=== PATIENT | male | born 1975 | race American Indian/Alaskan Native ===

== ENCOUNTER 2021-04-16 18:17 | Emergency (ER) | payer SELFPAY ==
[2021-04-16 18:37] VITALS: BP 152/74
[2021-04-16] MEDS ORDERED: HYDROcodone/ACETAMINOPHEN 5-325 MG TAB PO STA (20:14)
[2021-04-16] MEDS ORDERED: TETANUS,DIPH,PERTUSS(ACELL) VACCINE 0.5 ML SYRINGE IM ONE (20:14)
[2021-04-16] MEDS ORDERED: ONDANSETRON 4 MG/2 ML INJ IV ONE (20:18)
[2021-04-16] MEDS ORDERED: MORPHINE 4 MG/1 ML INJ IV ONE (20:18)
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
[2021-04-16 21:28] LABS: BUN/Creatinine Ratio 11; Blood Urea Nitrogen 12 mg/dL (9-20); Calcium 9.2 mg/dL (8.4-10.2); Hemolysis Index 11
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
== END 2021-04-17 02:00 | disposition home or self-care (01) ==
LOC: ED 18:17
DX: S02.19XA Other fracture of base of skull, initial encounter for closed fracture (principal); S81.812A Laceration without foreign body, left lower leg, initial encounter; S00.83XA Contusion of other part of head, initial encounter; M54.2 Cervicalgia; R10.9 Unspecified abdominal pain; Z98.890 Other specified postprocedural states; Z79.899 Other long term (current) drug therapy; V89.2XXA Person injured in unspecified motor-vehicle accident, traffic, initial encounter; Y93.89 Activity, other specified; Y92.488 Other paved roadways as the place of occurrence of the external cause; Y99.8 Other external cause status
CPT/HCPCS: 12034; 36415; 70450; 70486; 72125; 73590; 74177; 80048; 90471; 90715; 96374; 96375; 99285; J2270; J2405; Q9967